=== PATIENT | male | born 1990 | race American Indian/Alaskan Native ===

== ENCOUNTER 2018-01-27 23:58 | Emergency (ER) | payer SELFPAY ==
[2018-01-28] MEDS ORDERED: NACL 0.9% 1000 ML 1,000 ML IV ONE (00:37)
[2018-01-28] MEDS ORDERED: ATIVAN IV PRN (00:38)
--- NOTE | 2018-01-28 00:38 | Emergency Department Report ---
ED General Adult HPI - General Chief complaint: Psych Stated complaint: MH EVAL Time Seen by Provider: 01/28/18 00:28 Source: patient, EMS (ems notes not available at time of chart dictation), RN notes reviewed Mode of arrival: Stretcher Limitations: Other (amphetamine intoxication) - History of Present Illness Initial comments: This is a 27-year-old male, unknown to this provider, brought to the hospital by EMS. Patient indicates that he is intoxicated on amphetamines and alcohol. These were consumed recreationally, and is not homicidal or suicidal fashion. He denies other coingestions. He states he lives by himself. He cannot tell me who contacted 911. He denies headache, neck pain, chest pain, abdominal pain , shortness of breath, focal extremity weakness, numbness, ataxia and urinary symptoms. He reports that he thinks that he passed out earlier on today. He is not sure. He denies headache and neck pain. He denies DVT, pulmonary embolus risk factors. -: Gradual Severity scale (0 -10): 0 Consistency: constant Improves with: none Worsens with: none Associated Symptoms: syncope. denies: confusion, chest pain, cough, diaphoresis , fever/chills, headaches, loss of appetite, malaise, nausea/vomiting, rash, seizure, shortness of breath, weakness - Related Data Allergies Allergy/AdvReac Type Severity Reaction Status Date / Time No Known Allergies Allergy Verified 01/28/18 00:25 ED Review of Systems ROS: Stated complaint: MH EVAL Other details as noted in HPI Comment: All other systems reviewed and negative ED Past Medical Hx - Past Medical History Previous Medical History?: Yes Hx Asthma: Yes - Social History Smoking Status: Current Every Day Smoker Substance Use Type: Marijuana ED Physical Exam - General Limitations: Other (amphetamine intoxication) General appearance: alert, in no apparent distress - Head Head exam: Present: atraumatic, normocephalic - Eye Eye exam: Present: normal appearance, PERRL (pupils are dilated but do react to light), EOMI. Absent: nystagmus - ENT ENT exam: Present: normal exam, normal orophraynx, mucous membranes moist, normal external ear exam - Neck Neck exam: Present: normal inspection, full ROM - Respiratory Respiratory exam: Present: normal lung sounds bilaterally. Absent: respiratory distress - Cardiovascular Cardiovascular Exam: Present: regular rate, normal rhythm, normal heart sounds. Absent: bradycardia, tachycardia, irregular rhythm, systolic murmur, diastolic murmur, rubs, gallop - GI/Abdominal GI/Abdominal exam: Present: soft, normal bowel sounds. Absent: distended, tenderness, guarding, rebound, rigid, pulsatile mass - Rectal Rectal exam: Present: deferred - Extremities Exam Extremities exam: Present: normal inspection, full ROM, normal capillary refill , other (compartments are soft. 2+ pulses noted in the upper, lower extremities. Pelvis is stable. There is no long bony tenderness.). Absent: tenderness, pedal edema, joint swelling, calf tenderness - Back Exam Back exam: Present: normal inspection, full ROM. Absent: paraspinal tenderness , vertebral tenderness - Neurological Exam Neurological exam: Present: alert, oriented X3, CN II-XII intact, other ( Extraocular movements intact. Tongue midline. No facial droop. Facial sensation intact to light touch in the V1, V2, V3 distribution bilaterally. 5 and 5 strength in 4 extremities.. Sensation is intact to light touch in 4 extremities.). Absent: motor sensory deficit - Psychiatric Psychiatric exam: Present: anxious. Absent: homicidal ideation, suicidal ideation - Skin Skin exam: Present: warm, dry, intact, normal color. Absent: rash ED Course Vital Signs 01/28/18 01/28/18 01/28/18 00:10 00:16 00:26 Temperature 98.0 F Pulse Rate 80 83 Respiratory 18 12 Rate Blood Pressure 146/83 146/83 Blood Pressure [Right] O2 Sat by Pulse 98 98 99 Oximetry 01/28/18 00:30 Temperature 98.0 F Pulse Rate 102 H Respiratory 13 Rate Blood Pressure 146/83 Blood Pressure 146/83 [Right] O2 Sat by Pulse 99 Oximetry - Reevaluation(s) Reevaluation #1: 01/28/18 01:02 Differential diagnosis, including but not limited to: Intracranial injury, cervical spine injury, amphetamine intoxication, dehydration, orthostasis, vagal event, structural cardiac disease Assessment and plan: 27-year-old male with obvious clinical amphetamine intoxication. He is afebrile, with reassuring vital signs, intoxicated clinically, but does not meet 1013 criteria. He is pleasant, calm and cooperative, and has an unremarkable physical exam with the exception of pupillary dilatation, and amphetamine intoxication. He will be treated with IV fluids, and Ativan, CT scan of the brain, cervical spine pending, EKG is pending, patient will be observed in the emergency department pending clinical sobriety. Reevaluation #2: 01/28/18 05:[address] scan of the brain, cervical spine negative. Laboratory studies unremarkable. Patient reports that he feels unchanged. Reevaluation #3: 01/28/18 05:45 Laboratory studies unremarkable. No episodes of syncope noted. Still clinically intoxicated. Patient will be observed in the ER pending clinical sobriety. Care is transferred to the oncoming physician, Dr. Woodard, to reassess for clinical sobriety and discharge when sober ED Medical Decision Making - Lab Data Result diagrams: 01/28/18 00:51 01/28/18 00:51 Critical care attestation.: If time is entered above; I have spent that time in minutes in the direct care of this critically ill patient, excluding procedure time. ED Disposition Clinical Impression: Polysubstance abuse Disposition: DC-01 TO HOME OR SELFCARE Is pt being admited?: No Does the pt Need Aspirin: No Condition: Good Instructions: Polysubstance Abuse (ED) Additional Instructions: Avoid consumption of methamphetamines, crack, illegal drugs. These substances are bad for the patient's health. Do not drive or operate motor vehicles for the next 6 months, given history of passing out, or until cleared to drive or operate motor vehicles by a primary care doctor. Return to the ER right away with new pain, worsened pain, migration of pain, fevers, chills, lethargy, irritability or vomiting, change in mental status, confusion, inability to tolerate liquid feeds. Referrals: PRIMARY CARE, [Primary Care Provider] - 3-5 Days ZULMA LEUNG MD [Staff Physician] - 3-5 Days [facility] [Outside] - 3-5 Days
--- NOTE | 2018-01-28 01:31 | XRay Report ---
FINAL REPORT PROCEDURE: XR CHEST 1V AP TECHNIQUE: Chest radiograph anteroposterior view. CPT 42931 HISTORY: Medical Clearance Psych, hx smoker, asthma, htn COMPARISON: No prior studies are available for comparison. FINDINGS: Heart: Normal. Mediastinum/Vessels: Normal. Lungs/Pleural space: Normal. Bony thorax: No acute osseous abnormality. Life support devices: None. IMPRESSION: No acute cardiopulmonary abnormality.
[2018-01-28 01:46] LABS: Hematocrit 38.7 % (35.5-45.6); Hemoglobin 13.1 gm/dl (11.8-15.2); Mean Corpuscular HGB Conc 34 % (32-34); Mean Corpuscular Hemoglobin 32 pg (28-32); Mean Corpuscular Volume 94 fl (84-94); Platelet Count 236 K/mm3 (140-440); Red Blood Count 4.12 M/mm3 (3.65-5.03); Red Cell Distribution Width 14.8 % (13.2-15.2)
[2018-01-28 01:57] LABS: INR 1.07 (0.87-1.13)
[2018-01-28 02:00] LABS: Alanine Aminotransferase 11 units/L (7-56); Albumin 4.3 g/dL (3.9-5); BUN/Creatinine Ratio 9; Blood Urea Nitrogen 8 mg/dL (9-20); Calcium 8.9 mg/dL (8.4-10.2); Hemolysis Index 2
--- NOTE | 2018-01-28 03:19 | Cat Scan Report ---
FINAL REPORT PROCEDURE: CT HEAD/BRAIN WO CON TECHNIQUE: Computerized tomography of the head was performed without contrast material. HISTORY: Medical Clearance Psych COMPARISON: No prior studies are available for comparison. FINDINGS: Skull and scalp: Normal. Paranasal sinuses: Normal. Ventricles and subarachnoid spaces: Normal. Cerebrum: No evidence of hemorrhage, acute infarction or mass . Cerebellum and brainstem: No evidence of hemorrhage, acute infarction or mass. Vasculature: Normal. Comments: None. IMPRESSION: Normal Examination
--- NOTE | 2018-01-28 03:23 | Cat Scan Report ---
FINAL REPORT PROCEDURE: CT CERVICAL SPINE WO CON TECHNIQUE: Computerized tomography of the cervical spine was performed from the skull base to T1 without contrast material. HISTORY: intoxication fall COMPARISON: No prior studies are available for comparison. FINDINGS: The alignment of the cervical vertebral segments is normal. The heights of the vertebral bodies and the disc spaces are maintained. No acute fracture or dislocation. The spinal canal is adequate at all levels. IMPRESSION: There is no evidence of an acute fracture or dislocation..
[2018-01-28 07:29] VITALS: BP 125/67
[2018-01-28 08:25] LABS: Bacteria,Urine 1+ /HPF (Negative); Bilirubin,Urine NEG (Negative); Blood,Urine NEG (Negative); Color,Urine Yellow (Yellow); Mucus,Urine 3+ /HPF; Protein,Urine <15 mg/dL mg/dL (Negative); Urobilinogen,Urine < 2.0 mg/dL (<2.0)
[2018-01-28 08:34] LABS: Benzodiazepines Screen,Urine PRESUMPTIVE NEGATIVE; Methadone Screen,Urine PRESUMPTIVE NEGATIVE; Opiate Screen,Urine PRESUMPTIVE NEGATIVE
[2018-01-28 09:05] LABS: Amphetamine Screen,Urine PRESUMPTIVE POSITIVE; Cannabinoid Screen,Urine PRESUMPTIVE POSITIVE; Cocaine Screen,Urine PRESUMPTIVE POSITIVE
== END 2018-01-28 07:31 | disposition home or self-care (01) ==
LOC: EEVIPCON 23:58 → ED 23:58
DX: F19.10 Other psychoactive substance abuse, uncomplicated (principal); J45.909 Unspecified asthma, uncomplicated; F17.200 Nicotine dependence, unspecified, uncomplicated; F12.90 Cannabis use, unspecified, uncomplicated; F10.20 Alcohol dependence, uncomplicated
CPT/HCPCS: 36415; 70450; 71045; 72125; 80053; 80307; 81001; 82550; 83735; 84443; 85027; 85610; 93005; 93010; 96360; 99285; G0480; J7030; 80320